=== PATIENT | female | born 2000 | race Hispanic/Latino ===

== ENCOUNTER 2021-11-18 09:44 | Emergency (ER) | payer OTHER ==
[~2021-11-18] VITALS: Ht 162.6 cm; Wt 95.3 kg
[2021-11-18] MEDS ORDERED: KETOROLAC TROMETHAMINE 30 MG/ML VIAL IM STA (10:01)
[2021-11-18] MEDS ORDERED: CYCLOBENZAPRINE HCL 10 MG TAB PO ONE (10:15)
[2021-11-18] MEDS ORDERED: KETOROLAC TROMETHAMINE 30 MG/ML VIAL ONE (10:31)
[2021-11-18] MEDS ORDERED: CYCLOBENZAPRINE HCL 10 MG TAB ONE (10:31)
[2021-11-18] MEDS ORDERED: NAPROSYN500 MG PO (10:47)
[2021-11-18] MEDS ORDERED: CYCLOBENZAPRINE5 MG PO (10:47)
== END 2021-11-18 10:56 | disposition home or self-care (01) ==
LOC: FSED 09:55
DX: M54.6 Pain in thoracic spine (principal); M79.18 Myalgia, other site; F17.210 Nicotine dependence, cigarettes, uncomplicated
CPT/HCPCS: 96372; 99283; J1885